=== PATIENT | female | born 1960 | race African-American/Black ===

== ENCOUNTER 2024-10-30 18:16 | Emergency (ER) | payer MEDICARE ==
[~2024-10-30] VITALS: Ht 162.6 cm; Wt 62.0 kg
[2024-10-30 18:22] VITALS: O2SAT 98
[2024-10-30 18:42] VITALS: TEMP 37.8
[2024-10-30] MEDS ORDERED: HYDR-4001 MT (19:58)
[2024-10-30 20:29] VITALS: BP 193/95; PULSE 103; RESP 18; O2SAT 97
== END 2024-10-30 20:20 | disposition home or self-care (01) ==
LOC: ER 18:16
DX: S82.002A Unspecified fracture of left patella, initial encounter for closed fracture (principal); E11.9 Type 2 diabetes mellitus without complications; I10 Essential (primary) hypertension; W19.XXXA Unspecified fall, initial encounter; Y93.89 Activity, other specified; Y92.89 Other specified places as the place of occurrence of the external cause; Y99.8 Other external cause status
CPT/HCPCS: 99284; 73560; 73590; L1830